=== PATIENT | male | born 1955 | race Caucasian/White ===

== ENCOUNTER 2020-02-11 09:47 | Emergency (ER) | payer OTHER ==
[~2020-02-11 09:47] MED LIST: COLCHICINE0.6 MG PO; INDOCIN25 MG PO; VICODIN 500 MG-1 TAB PO
[2020-02-11] MEDS ORDERED: POLYSPORIN OINT15 GM T (10:49)
[2020-02-11] MEDS ORDERED: SEPTDS PO (10:49)
== END 2020-02-11 10:54 | disposition home or self-care (01) ==
LOC: ED 09:47
DX: L02.416 Cutaneous abscess of left lower limb (principal); J44.9 Chronic obstructive pulmonary disease, unspecified; I48.91 Unspecified atrial fibrillation; F17.200 Nicotine dependence, unspecified, uncomplicated; Z88.5 Allergy status to narcotic agent

== ENCOUNTER → 2020-08-11 | Outpatient (CLI) | payer MEDICARE, MEDICAID ==
[~2020-08-11] MED LIST changes: +CARDURA8 M1 PO; +COMBIVENT RESPIM4 GM INH; +ELIQUIS5 M1 PO; +PERCOCET 5-3251 EACH PO; +POLYSPORIN OINT15 GM T; +SEPTDS PO; +SYMB160 INH
== END | disposition home or self-care (01) ==
LOC: WOUNDCARE 08:14
PROVIDERS: ATTEND Nurse Practitioner
DX: T86.828 Other complications of skin graft (allograft) (autograft) (principal); L02.416 Cutaneous abscess of left lower limb; I10 Essential (primary) hypertension; I48.91 Unspecified atrial fibrillation; T81.40XA Infection following a procedure, unspecified, initial encounter; J44.9 Chronic obstructive pulmonary disease, unspecified; F17.290 Nicotine dependence, other tobacco product, uncomplicated; Z98.42 Cataract extraction status, left eye; Z98.41 Cataract extraction status, right eye; Y83.2 Surgical operation with anastomosis, bypass or graft as the cause of abnormal reaction of the patient, or of later complication, without mention of misadventure at the time of the procedure

== ENCOUNTER → 2020-08-19 | Outpatient (CLI) | payer MEDICARE, MEDICAID | LOC: WOUNDCARE 00:56 | PROVIDERS: ATTEND Nurse Practitioner | DX: T86.828 Other complications of skin graft (allograft) (autograft) (principal); L02.416 Cutaneous abscess of left lower limb; I10 Essential (primary) hypertension; I48.91 Unspecified atrial fibrillation; T81.40XD Infection following a procedure, unspecified, subsequent encounter; J44.9 Chronic obstructive pulmonary disease, unspecified; F17.290 Nicotine dependence, other tobacco product, uncomplicated; Z98.42 Cataract extraction status, left eye; Z98.41 Cataract extraction status, right eye; Y83.2 Surgical operation with anastomosis, bypass or graft as the cause of abnormal reaction of the patient, or of later complication, without mention of misadventure at the time of the procedure ==

== ENCOUNTER → 2020-08-26 | Outpatient (CLI) | payer MEDICARE, MEDICAID | LOC: WOUNDCARE 00:40 | PROVIDERS: ATTEND Nurse Practitioner | DX: T86.828 Other complications of skin graft (allograft) (autograft) (principal); T81.40XD Infection following a procedure, unspecified, subsequent encounter; L02.416 Cutaneous abscess of left lower limb; F17.210 Nicotine dependence, cigarettes, uncomplicated; I10 Essential (primary) hypertension; I48.91 Unspecified atrial fibrillation; J44.9 Chronic obstructive pulmonary disease, unspecified; Z98.41 Cataract extraction status, right eye; Y83.2 Surgical operation with anastomosis, bypass or graft as the cause of abnormal reaction of the patient, or of later complication, without mention of misadventure at the time of the procedure; Y83.8 Other surgical procedures as the cause of abnormal reaction of the patient, or of later complication, without mention of misadventure at the time of the procedure ==

== ENCOUNTER → 2020-08-29 | Outpatient (CLI) | payer MEDICARE | END | disposition home or self-care (01) | LOC: CT 09:23 | PROVIDERS: ATTEND Nurse Practitioner | DX: M17.12 Unilateral primary osteoarthritis, left knee (principal); M19.072 Primary osteoarthritis, left ankle and foot; T81.40XD Infection following a procedure, unspecified, subsequent encounter; L02.416 Cutaneous abscess of left lower limb; T86.828 Other complications of skin graft (allograft) (autograft) ==

== ENCOUNTER → 2020-09-02 | Outpatient (CLI) | payer MEDICARE | LOC: WOUNDCARE 01:19 | PROVIDERS: ATTEND Nurse Practitioner | DX: T86.828 Other complications of skin graft (allograft) (autograft) (principal); T81.40XD Infection following a procedure, unspecified, subsequent encounter; L02.416 Cutaneous abscess of left lower limb; I10 Essential (primary) hypertension; I48.91 Unspecified atrial fibrillation; J44.9 Chronic obstructive pulmonary disease, unspecified; F17.210 Nicotine dependence, cigarettes, uncomplicated; Z98.49 Cataract extraction status, unspecified eye; Y83.2 Surgical operation with anastomosis, bypass or graft as the cause of abnormal reaction of the patient, or of later complication, without mention of misadventure at the time of the procedure; Y83.8 Other surgical procedures as the cause of abnormal reaction of the patient, or of later complication, without mention of misadventure at the time of the procedure ==

== ENCOUNTER → 2020-09-08 | Outpatient (CLI) | payer MEDICARE | END | disposition home or self-care (01) | LOC: COVID19 08:58 | PROVIDERS: ATTEND Surgery | DX: Z01.812 Encounter for preprocedural laboratory examination (principal); Z20.822 Contact with and (suspected) exposure to COVID-19 ==

== ENCOUNTER → 2020-09-11 | Day surgery (SDC) | payer MEDICARE ==
[~2020-09-11] VITALS: Ht 180.3 cm; Wt 96.2 kg
[2020-09-11 09:00] VITALS: BP 159/74
[2020-09-11 10:58] VITALS: BP 126/74
[2020-09-11 11:15] VITALS: BP 134/71
[2020-09-11 11:28] VITALS: BP 144/69
== END | disposition home or self-care (01) ==
LOC: SDC 09-08 12:30
PROVIDERS: ATTEND Surgery
DX: L02.416 Cutaneous abscess of left lower limb (principal); T86.828 Other complications of skin graft (allograft) (autograft); J44.9 Chronic obstructive pulmonary disease, unspecified; I48.91 Unspecified atrial fibrillation; I10 Essential (primary) hypertension; F17.210 Nicotine dependence, cigarettes, uncomplicated; Z88.5 Allergy status to narcotic agent

== ENCOUNTER → 2020-09-16 | Outpatient (CLI) | payer MEDICARE | LOC: WOUNDCARE 00:26 | PROVIDERS: ATTEND Nurse Practitioner | DX: T86.828 Other complications of skin graft (allograft) (autograft) (principal); T81.40XD Infection following a procedure, unspecified, subsequent encounter; L02.416 Cutaneous abscess of left lower limb; I10 Essential (primary) hypertension; I48.91 Unspecified atrial fibrillation; J44.9 Chronic obstructive pulmonary disease, unspecified; F17.210 Nicotine dependence, cigarettes, uncomplicated; Z98.49 Cataract extraction status, unspecified eye; Y83.2 Surgical operation with anastomosis, bypass or graft as the cause of abnormal reaction of the patient, or of later complication, without mention of misadventure at the time of the procedure; Y83.8 Other surgical procedures as the cause of abnormal reaction of the patient, or of later complication, without mention of misadventure at the time of the procedure ==

== ENCOUNTER → 2020-09-24 | Outpatient (CLI) | payer MEDICARE | LOC: WOUNDCARE 09-23 03:52 | PROVIDERS: ATTEND Nurse Practitioner | DX: T86.828 Other complications of skin graft (allograft) (autograft) (principal); T81.40XD Infection following a procedure, unspecified, subsequent encounter; L02.416 Cutaneous abscess of left lower limb; I10 Essential (primary) hypertension; I48.91 Unspecified atrial fibrillation; J44.9 Chronic obstructive pulmonary disease, unspecified; F17.210 Nicotine dependence, cigarettes, uncomplicated; Z98.49 Cataract extraction status, unspecified eye; Y83.2 Surgical operation with anastomosis, bypass or graft as the cause of abnormal reaction of the patient, or of later complication, without mention of misadventure at the time of the procedure; Y83.8 Other surgical procedures as the cause of abnormal reaction of the patient, or of later complication, without mention of misadventure at the time of the procedure ==

== ENCOUNTER → 2020-09-30 | Outpatient (CLI) | payer MEDICARE | LOC: WOUNDCARE 13:26 | PROVIDERS: ATTEND Nurse Practitioner | DX: T86.828 Other complications of skin graft (allograft) (autograft) (principal); T81.40XD Infection following a procedure, unspecified, subsequent encounter; L02.416 Cutaneous abscess of left lower limb; I10 Essential (primary) hypertension; I48.91 Unspecified atrial fibrillation; J44.9 Chronic obstructive pulmonary disease, unspecified; F17.210 Nicotine dependence, cigarettes, uncomplicated; Z98.49 Cataract extraction status, unspecified eye; Y83.2 Surgical operation with anastomosis, bypass or graft as the cause of abnormal reaction of the patient, or of later complication, without mention of misadventure at the time of the procedure; Y83.8 Other surgical procedures as the cause of abnormal reaction of the patient, or of later complication, without mention of misadventure at the time of the procedure ==

== ENCOUNTER → 2020-10-07 | Outpatient (CLI) | payer MEDICARE | LOC: WOUNDCARE 01:25 | PROVIDERS: ATTEND Nurse Practitioner | DX: T86.828 Other complications of skin graft (allograft) (autograft) (principal); T81.40XD Infection following a procedure, unspecified, subsequent encounter; L02.416 Cutaneous abscess of left lower limb; L97.222 Non-pressure chronic ulcer of left calf with fat layer exposed; I10 Essential (primary) hypertension; I48.91 Unspecified atrial fibrillation; J44.9 Chronic obstructive pulmonary disease, unspecified; F17.210 Nicotine dependence, cigarettes, uncomplicated; Z98.49 Cataract extraction status, unspecified eye; Y83.2 Surgical operation with anastomosis, bypass or graft as the cause of abnormal reaction of the patient, or of later complication, without mention of misadventure at the time of the procedure; Y83.8 Other surgical procedures as the cause of abnormal reaction of the patient, or of later complication, without mention of misadventure at the time of the procedure ==